=== PATIENT | female | born 1960 | race Caucasian/White ===

== ENCOUNTER 2018-10-01 05:06 | Day surgery (SDC) | payer OTHER ==
[~2018-10-01 05:06] MED LIST: AMARYL; ATACAND4 MG PO; AVALIDE 300-251 TAB; FENOFIBRATE160 MG PO; FORTAMET500 MG PO; GLIMEPIRIDE2 MG; SYNTH PO; ZITHROMAX500 MG
== END 2018-10-01 12:45 | disposition home or self-care (01) ==
LOC: CIR.AMB 05:06
DX: M65.841 Other synovitis and tenosynovitis, right hand (principal)

== ENCOUNTER 2021-12-07 09:57 | Outpatient (CLI) | payer OTHER | END 2021-12-07 10:08 | disposition home or self-care (01) | LOC: SONOGRAMA 09:57 | PROVIDERS: ATTEND Specialist | DX: D25.1 Intramural leiomyoma of uterus (principal); N85.01 Benign endometrial hyperplasia ==

== ENCOUNTER 2022-06-25 09:02 | Outpatient (CLI) | payer OTHER | END 2022-06-25 09:17 | disposition home or self-care (01) | LOC: SONOGRAMA 09:02 | PROVIDERS: ATTEND Obstetrics & Gynecology Gynecology | DX: D25.0 Submucous leiomyoma of uterus (principal); N84.0 Polyp of corpus uteri ==